=== PATIENT | female | born 1960 | race Caucasian/White ===

== ENCOUNTER 2022-04-06 13:44 | Emergency (ER) | payer OTHER ==
[~2022-04-06] VITALS: Ht 165.1 cm; Wt 63.5 kg
[2022-04-06] MEDS ORDERED: VAZALORE81 MG PO (13:53)
[2022-04-06] MEDS ORDERED: ATORVASTATIN CA40 MG PO (13:53)
[2022-04-06] MEDS ORDERED: CARVEDILOL12.5 MG PO (13:53)
[2022-04-06] MEDS ORDERED: LISINOPRIL40 MG PO (13:54)
[2022-04-06] MEDS ORDERED: CLOPIDOGREL75 MG PO (13:54)
[2022-04-06] MEDS ORDERED: VENTOLIN HFA18 GM INH (14:34)
[2022-04-06] MEDS ORDERED: HYDROCODON-ACE1 EA10 PO (18:10)
--- NOTE | 2022-04-07 13:08 | EKG ---
[facility] [address] [place], [place] [address] Signed Normal sinus rhythm Normal ECG No previous ECGs available Confirmed by THERESE MAKI MD ([id number]) on 04/07/2022 1:08:06 PM Electronically Signed By: THERESE MAKI MD 04/07/22 1308 PATIENT NAME: DOMINIC JOHN Electrocardiogram DATE OF : 56 PHYSICIAN: THERESE MAKI MD REPORT #: [id number] REPORT IS CONFIDENTIAL AND NOT TO BE RELEASED WITHOUT AUTHORIZATION
== END 2022-04-06 18:22 | disposition home or self-care (01) ==
LOC: ED 13:44
DX: R55 Syncope and collapse (principal); S02.2XXA Fracture of nasal bones, initial encounter for closed fracture; S42.211A Unspecified displaced fracture of surgical neck of right humerus, initial encounter for closed fracture; Z86.73 Personal history of transient ischemic attack (TIA), and cerebral infarction without residual deficits; Z79.899 Other long term (current) drug therapy; Z79.82 Long term (current) use of aspirin; Z79.01 Long term (current) use of anticoagulants; X58.XXXA Exposure to other specified factors, initial encounter; Y92.002 Bathroom of unspecified non-institutional (private) residence as the place of occurrence of the external cause
CPT/HCPCS: 36415; 70450; 70486; 73060; 80053; 85025; 93005; 93010; 96374; 96375; 99284-25; J1170; J2405

== ENCOUNTER 2022-04-07 14:57 | Emergency (ER) | payer OTHER ==
[~2022-04-07] VITALS: Ht 165.1 cm; Wt 63.5 kg
--- NOTE | ~2022-04-07 | EKG ---
[facility] [address] [place], [place] [address] Draft EK completed, results pending confirmation PATIENT NAME: DOMINIC JOHN Electrocardiogram DATE OF : 56 PHYSICIAN: PRELIMINARY REPORT #: [id number] REPORT IS CONFIDENTIAL AND NOT TO BE RELEASED WITHOUT AUTHORIZATION
[~2022-04-07 14:57] MED LIST: ATORVASTATIN CA40 MG PO; CARVEDILOL12.5 MG PO; CLOPIDOGREL75 MG PO; HYDROCODON-ACE1 EA10 PO; LISINOPRIL40 MG PO; VAZALORE81 MG PO; VENTOLIN HFA18 GM INH
--- OUTSIDE RECORDS SUMMARY | 2022-04-07 15:00 | XMS ---
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 - 2 Visits in 30 Days CARE PROVIDERS There are no care providers on record at this time. Maria Del Rosario has no Care Guidelines for this patient. Madhavi VISIT COUNT (12 MO.) 1 [facility] NOTE: Visits indicate total known visits. ED/UCC VISIT TRACKING (12 MO.) [facility] 14[facility] COMPLAINT: - RT SHOULDER PAIN/INJURY 04/06/2022 13:[address] [facility] [place] TYPE: Emergency COMPLAINT: - FALL, FACE, R ARM PAIN/INJURY 01/30/2022 10:37 Travis [facility] TYPE: Emergency DIAGNOSES: - Tobacco use - Hypertensive urgency - Headache, unspecified - Cerebral infarction, unspecified - Transient cerebral ischemic attack, unspecified - Weakness - pos stroke? - Other chronic pain INPATIENT VISIT TRACKING (12 MO.) 01/30/2022 10:37 Travis [facility] TYPE: Medical Surgical DIAGNOSES: - Tobacco use - Headache, unspecified - Transient cerebral ischemic attack, unspecified - Cerebral infarction, unspecified - Other chronic pain - Hypertensive urgency [email or web address]
== END 2022-04-07 17:10 | disposition home or self-care (01) ==
LOC: ED 14:57
DX: R55 Syncope and collapse (principal); S22.32XA Fracture of one rib, left side, initial encounter for closed fracture; I10 Essential (primary) hypertension; Z86.73 Personal history of transient ischemic attack (TIA), and cerebral infarction without residual deficits; Z79.899 Other long term (current) drug therapy; Z79.82 Long term (current) use of aspirin; Z79.01 Long term (current) use of anticoagulants; X58.XXXA Exposure to other specified factors, initial encounter
CPT/HCPCS: 71101; 80053; 83735; 85025; 93005; 93010; 99284-25

== ENCOUNTER 2022-04-23 23:53 | Emergency (ER) | payer OTHER ==
[~2022-04-23] VITALS: Ht 165.1 cm; Wt 63.5 kg
--- OUTSIDE RECORDS SUMMARY | 2022-04-23 23:54 | XMS ---
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 Maria Del Rosario has no Care Guidelines for this patient. Madhavi VISIT COUNT (12 MO.) 1 [facility] NOTE: Visits indicate total known visits. ED/UCC VISIT TRACKING (12 MO.) [facility]23[facility]2022 23:[facility] COMPLAINT: - POST OP ISSUES 04/07/2022 14:58 [facility] [place] TYPE: Emergency COMPLAINT: - RT SHOULDER PAIN/INJURY DIAGNOSES: - Fracture of one rib, left side, initial encounter for closed fracture - Essential (primary) hypertension - termination clerk (current) use of aspirin - Personal history of transient ischemic attack (TIA), and cerebral infarction without residual deficits - Syncope and collapse - Exposure to other specified factors, initial encounter - Other skilled nursing (current) drug therapy - [facility] (current) use of anticoagulants 04/06/2022 13:46 [facility] [place] TYPE: Emergency COMPLAINT: - FALL, FACE, R ARM PAIN/INJURY DIAGNOSES: - Other skilled nursing (current) drug therapy - Exposure to other specified factors, initial encounter - Syncope and collapse - Unspecified displaced fracture of surgical neck of right humerus, initial encounter for closed fracture - Personal history of transient ischemic attack (TIA), and cerebral infarction without residual deficits - Fracture of nasal bones, initial encounter for closed fracture - Bathroom of unspecified non-institutional (private) residence as the place of occurrence of the external cause - termination clerk (current) use of anticoagulants - [facility] (current) use of aspirin 01/30/2022 10:37 [facility] TYPE: Emergency DIAGNOSES: - Other chronic pain - Tobacco use - Hypertensive urgency - Headache, unspecified - Cerebral infarction, unspecified - Transient cerebral ischemic attack, unspecified - Weakness - pos stroke? INPATIENT VISIT TRACKING (12 MO.) 01/30/2022 10:37 Travis Cox [facility] TYPE: Medical Surgical DIAGNOSES: - Tobacco use - Headache, unspecified - Transient cerebral ischemic attack, unspecified - Cerebral infarction, unspecified - Other chronic pain - Hypertensive urgency [email or web address]
== END 2022-04-24 01:33 | disposition home or self-care (01) ==
LOC: ED 23:53
DX: D64.89 Other specified anemias (principal); E86.0 Dehydration; I10 Essential (primary) hypertension; Z79.899 Other long term (current) drug therapy; Z79.82 Long term (current) use of aspirin
CPT/HCPCS: 36415; 80053; 84484; 85025; 99284; J7121